=== PATIENT | female | born 1995 | race Caucasian/White ===

== ENCOUNTER 2017-07-28 21:45 | Emergency (ER) | payer OTHER ==
[~2017-07-28] VITALS: Ht 170.2 cm; Wt 49.9 kg
[~2017-07-28 21:45] MED LIST: ALBUTEROL2.5 MG/0.5 INH; AMOXICILLIN 50500 MG PO; CELEXA10 MG; CIPRO500 MG PO; DEPAKOTE 250MG250 M1 PO; FLAGYL500 MG PO; IBUPROFEN 800800 M1 PO; NEBULIZER MISCELL; PREDNISONE 20 M20 MG PO; PROAIR HFA8.5 GM INH; RISPERDAL 1 MG T1 MG PO; VENTOLIN HFA 1818 GM INH; VISTARIL 25 MG25 M1; XANAX1 MG PO
[2017-07-28] MEDS ORDERED: VENTOLIN HFA 1818 GM INH (21:48)
[2017-07-28] MEDS ORDERED: PREDNISONE 20 M20 M1 PO (21:48)
[2017-07-28 22:30] VITALS: BP 110/63
== END 2017-07-28 22:31 | disposition home or self-care (01) ==
LOC: M.ERS 21:45
DX: J45.901 Unspecified asthma with (acute) exacerbation (principal); F41.9 Anxiety disorder, unspecified; F32.9 Major depressive disorder, single episode, unspecified; F20.9 Schizophrenia, unspecified; F17.210 Nicotine dependence, cigarettes, uncomplicated; F10.99 Alcohol use, unspecified with unspecified alcohol-induced disorder; F12.10 Cannabis abuse, uncomplicated

== ENCOUNTER 2017-08-18 00:52 | Emergency (ER) | payer OTHER ==
[~2017-08-18] VITALS: Ht 170.2 cm; Wt 49.9 kg
[~2017-08-18 00:52] MED LIST changes: +PREDNISONE 20 M20 M1 PO
[2017-08-18 01:03] VITALS: BP 127/70
== END 2017-08-18 01:12 | disposition home or self-care (01) ==
LOC: M.ERS 00:52
DX: F32.9 Major depressive disorder, single episode, unspecified (principal); J45.909 Unspecified asthma, uncomplicated; F20.9 Schizophrenia, unspecified; F41.9 Anxiety disorder, unspecified; F84.5 Asperger's syndrome; F17.210 Nicotine dependence, cigarettes, uncomplicated

== ENCOUNTER 2018-01-12 04:44 | Emergency (ER) | payer OTHER ==
[~2018-01-12] VITALS: Ht 172.7 cm; Wt 52.2 kg
[2018-01-12] MEDS ORDERED: XANAX 0.5 MG0.5 MG PO (05:03)
[2018-01-12] MEDS ORDERED: BACTRIM DS TAB1 EACH PO (05:18)
[2018-01-12] MEDS ORDERED: IBUPROFEN 800800 MG PO (05:18)
[2018-01-12] MEDS ORDERED: ACETAMINOPHEN-1 EAC1 PO (05:18)
[2018-01-12 05:50] VITALS: BP 124/80
== END 2018-01-12 05:53 | disposition home or self-care (01) ==
LOC: M.ERS 04:44
DX: L03.031 Cellulitis of right toe (principal); J45.909 Unspecified asthma, uncomplicated; F20.9 Schizophrenia, unspecified; F41.9 Anxiety disorder, unspecified; F32.9 Major depressive disorder, single episode, unspecified; F84.5 Asperger's syndrome; F17.210 Nicotine dependence, cigarettes, uncomplicated

== ENCOUNTER 2018-02-05 19:56 | Emergency (ER) | payer OTHER ==
[~2018-02-05] VITALS: Ht 172.7 cm; Wt 54.4 kg
[~2018-02-05 19:56] MED LIST changes: +ACETAMINOPHEN-1 EAC1 PO; +BACTRIM DS TAB1 EACH PO; +IBUPROFEN 800800 MG PO; +XANAX 0.5 MG0.5 MG PO
[2018-02-05 20:33] LABS: URINE BILIRUBIN NEGATIVE (Negative); URINE BLOOD NEGATIVE (Negative); URINE CLARITY CLEAR; URINE COLOR YELLOW; URINE GLUCOSE-RANDOM NEGATIVE (Negative); URINE KETONES NEGATIVE (Negative); URINE LEUKOCYTES-REFLEX NEGATIVE (Negative); URINE NITRITE-REFLEX NEGATIVE (Negative); URINE PROTEIN NEGATIVE (Negative); URINE UROBILINOGEN 0.2 E.U./dl (0.2-1.0)
[2018-02-05 20:41] LABS: AMP/METHAMP POSITIVE (Negative); BARBITURATES Negative (Negative); BENZODIAZEPINES Negative (Negative); COCAINE Negative (Negative); METHADONE Negative (Negative); OPIATES Negative (Negative); PCP Negative (Negative); THC Negative (Negative)
[2018-02-05 20:54] LABS: ABSOLUTE EOSINOPHILS 0.7 thou/uL (0.0-0.7); ABSOLUTE LYMPHOCYTES 2.5 thou/uL (0.8-5.3); ABSOLUTE MONOCYTES 0.6 thou/uL (0.0-1.2); ABSOLUTE NEUTROPHILS 4.3 thou/uL (1.6-8.1); BASOPHILS 0.5 %; EOSINOPHILS 8.1 %; HEMATOCRIT 39.1 % (37.0-47.0); HEMOGLOBIN 13.3 gm/dL (12.0-15.0); LYMPHOCYTES 31.4 %; MCH 30.5 pg (26.0-34.0); MCV 89.7 fL (80.0-100.0); MONOCYTES 7.2 %; MPV 8.8 fl. (7.2-11.1); NUCLEATED RBCS 0 /100WBC; PLATELET COUNT* 213 thou/uL (150-400); POLYS 52.8 %; RBC 4.36 mil/uL (4.20-5.00); RDW-CV 12.8 % (10.5-14.5); WBC 8.1 thou/uL (4.0-11.0)
[2018-02-05 20:58] LABS: CALCIUM 8.7 mg/dL (8.5-10.1); CREATININE 0.5 mg/dL (0.6-1.3); POTASSIUM 3.4 mmol/L (3.5-5.1)
[2018-02-05 21:03] LABS: ALBUMIN 3.4 g/dL (3.4-5.0); TOTAL BILIRUBIN 0.3 mg/dL (<0.1-1.0); TOTAL PROTEIN 7.2 g/dL (6.4-8.2)
[2018-02-05 21:11] LABS: SALICYLATE < 2.8 mg/dL (2.8-20.0)
[2018-02-05 21:12] LABS: ACETAMINOPHEN < 2 ug/mL (10-30); ALCOHOL < 10 mg/dL (<10)
[2018-02-06 00:03] VITALS: BP 99/68
== END 2018-02-06 00:05 | disposition short-term general hospital (02) ==
LOC: M.ERS 19:56
PROVIDERS: Family Medicine
DX: F32.9 Major depressive disorder, single episode, unspecified (principal); J45.909 Unspecified asthma, uncomplicated; F20.9 Schizophrenia, unspecified; F41.9 Anxiety disorder, unspecified; F17.210 Nicotine dependence, cigarettes, uncomplicated

== ENCOUNTER 2019-03-09 15:53 | Emergency (ER) | payer OTHER ==
[~2019-03-09] VITALS: Ht 170.2 cm; Wt 54.4 kg
[2019-03-09] MEDS ORDERED: BIRTH CONTROL (16:12)
[2019-03-09 16:18] LABS: URINE BLOOD 3+ (Negative); URINE CLARITY CLOUDY; URINE COLOR YELLOW; URINE GLUCOSE-RANDOM NEGATIVE (Negative); URINE KETONES TRACE (Negative); URINE LEUKOCYTES-REFLEX 1+ (Negative); URINE NITRITE-REFLEX NEGATIVE (Negative); URINE PROTEIN 1+ (Negative); URINE SPECIFIC GRAVITY >= 1.030 (1.005-1.030); URINE UROBILINOGEN 0.2 E.U./dl (0.2-1.0)
[2019-03-09 16:27] LABS: ABSOLUTE BASOPHILS 0.1 thou/uL (0.0-0.2); ABSOLUTE EOSINOPHILS 0.5 thou/uL (0.0-0.7); ABSOLUTE LYMPHOCYTES 2.8 thou/uL (0.8-5.3); ABSOLUTE MONOCYTES 0.5 thou/uL (0.0-1.2); ABSOLUTE NEUTROPHILS 3.5 thou/uL (1.6-8.1); BASOPHILS 1.4 %; EOSINOPHILS 7.3 %; HEMATOCRIT 44.7 % (37.0-47.0); HEMOGLOBIN 15.2 gm/dL (12.0-15.0); LYMPHOCYTES 37.6 %; MCH 30.6 pg (26.0-34.0); MCHC 33.9 g/dL (28.0-37.0); MCV 90.3 fL (80.0-100.0); MONOCYTES 6.2 %; MPV 9.6 fl. (7.2-11.1); NUCLEATED RBCS 0 /100WBC; PLATELET COUNT* 261 thou/uL (150-400); POLYS 47.5 %; RBC 4.95 mil/uL (4.20-5.00); WBC 7.4 thou/uL (4.0-11.0)
[2019-03-09 16:27] LABS: CASTS None Seen /LPF (None Seen); CRYSTALS None Seen /LPF (None Seen); ICTOTEST (BILI CONFIRMATORY) Negative (Negative); MUCUS 0-3 Light strn/LPF (None Seen); SQUAMOUS >10 Many /LPF (0-3); URINE BILIRUBIN 1+ (Negative); URINE RBC 3-10 Few /HPF (0-2)
[2019-03-09 16:34] LABS: CALCIUM 9.4 mg/dL (8.5-10.1); CREATININE 0.9 mg/dL (0.6-1.3); POTASSIUM 3.5 mmol/L (3.5-5.1)
[2019-03-09 16:39] LABS: ALBUMIN 4.1 g/dL (3.4-5.0); TOTAL BILIRUBIN 0.5 mg/dL (<0.1-1.0); TOTAL PROTEIN 7.3 g/dL (6.4-8.2)
[2019-03-09] MEDS ORDERED: MACRODANTIN100 MG PO (16:39)
[2019-03-09] MEDS ORDERED: PROGESTERONE200 MG PO (16:44)
[2019-03-09 16:51] VITALS: BP 114/78
== END 2019-03-09 16:52 | disposition home or self-care (01) ==
LOC: M.ERS 15:53
PROVIDERS: Family Medicine
DX: N39.0 Urinary tract infection, site not specified (principal); F17.210 Nicotine dependence, cigarettes, uncomplicated; J45.909 Unspecified asthma, uncomplicated; F20.9 Schizophrenia, unspecified; F41.9 Anxiety disorder, unspecified; F32.9 Major depressive disorder, single episode, unspecified

== ENCOUNTER 2019-09-28 13:37 | Emergency (ER) | payer BC ==
[~2019-09-28] VITALS: Ht 170.2 cm; Wt 54.4 kg
[~2019-09-28 13:37] MED LIST changes: +BIRTH CONTROL; +MACRODANTIN100 MG PO; +PROGESTERONE200 MG PO
[2019-09-28] MEDS ORDERED: SYMBICORT160 MCG/4. INH (13:48)
[2019-09-28] MEDS ORDERED: PREDNISONE 20 M20 M1 PO (13:48)
[2019-09-28 14:06] LABS: INFLUENZA A ANTIGEN Negative (Negative); INFLUENZA B ANTIGEN Negative (Negative)
[2019-09-28 14:32] VITALS: BP 135/81
== END 2019-09-28 14:33 | disposition home or self-care (01) ==
LOC: M.ERS 13:37
PROVIDERS: Emergency Medicine Emergency Medical Services
DX: J45.901 Unspecified asthma with (acute) exacerbation (principal); F17.210 Nicotine dependence, cigarettes, uncomplicated

== ENCOUNTER 2019-10-07 21:37 | Emergency (ER) | payer BC ==
[~2019-10-07] VITALS: Ht 170.2 cm; Wt 52.2 kg
[~2019-10-07 21:37] MED LIST changes: +SYMBICORT160 MCG/4. INH
[2019-10-07] MEDS ORDERED: PULMICORT FLE180 MCG INH ×2 (22:47→23:00)
[2019-10-07] MEDS ORDERED: VENTOLIN HFA 1818 GM INH ×2 (22:47→23:00)
[2019-10-07] MEDS ORDERED: ZPAK PO ×2 (22:47→23:00)
[2019-10-07] MEDS ORDERED: PREDNISONE 10 M10 MG PO ×2 (22:47→23:00)
[2019-10-07 22:55] LABS: INFLUENZA A ANTIGEN Negative (Negative); INFLUENZA B ANTIGEN Negative (Negative)
[2019-10-07 23:14] VITALS: BP 115/70
== END 2019-10-07 23:15 | disposition home or self-care (01) ==
LOC: M.ERS 21:37
PROVIDERS: Nurse Practitioner Family
DX: J06.9 Acute upper respiratory infection, unspecified (principal); J45.909 Unspecified asthma, uncomplicated; F17.210 Nicotine dependence, cigarettes, uncomplicated

== ENCOUNTER 2019-10-23 10:33 | Emergency (ER) | payer BC ==
[~2019-10-23] VITALS: Ht 170.2 cm; Wt 54.4 kg
[~2019-10-23 10:33] MED LIST changes: +PREDNISONE 10 M10 MG PO; +PULMICORT FLE180 MCG INH; +ZPAK PO
[2019-10-23] MEDS ORDERED: VENTOLIN HFA 1818 GM INH (11:10)
[2019-10-23 11:17] VITALS: BP 108/72
== END 2019-10-23 11:20 | disposition home or self-care (01) ==
LOC: M.ERS 10:33
DX: F41.0 Panic disorder [episodic paroxysmal anxiety] (principal); F15.10 Other stimulant abuse, uncomplicated; R10.9 Unspecified abdominal pain; J45.909 Unspecified asthma, uncomplicated; F41.9 Anxiety disorder, unspecified; F32.9 Major depressive disorder, single episode, unspecified; F20.9 Schizophrenia, unspecified; F84.0 Autistic disorder; F17.210 Nicotine dependence, cigarettes, uncomplicated; Y04.0XXA Assault by unarmed brawl or fight, initial encounter; Y93.89 Activity, other specified; Y92.89 Other specified places as the place of occurrence of the external cause; Y99.8 Other external cause status

== ENCOUNTER 2020-04-11 23:10 | Emergency (ER) | payer BC ==
[~2020-04-11] VITALS: Ht 172.7 cm; Wt 54.4 kg
[2020-04-11] MEDS ORDERED: SYMBICORT160 MCG/4. INH (23:15)
[2020-04-11] MEDS ORDERED: PROAIR HFA8.5 GM INH (23:34)
[2020-04-11 23:39] VITALS: BP 132/68
[2020-04-12] MEDS ORDERED: PREDNISONE50 MG PO (06:38)
== END 2020-04-11 23:39 | disposition home or self-care (01) ==
LOC: M.ERS 23:10
DX: F41.9 Anxiety disorder, unspecified (principal); J45.901 Unspecified asthma with (acute) exacerbation; F20.9 Schizophrenia, unspecified; F17.210 Nicotine dependence, cigarettes, uncomplicated

== ENCOUNTER 2020-04-12 05:33 | Emergency (ER) | payer BC ==
[~2020-04-12] VITALS: Ht 172.7 cm; Wt 54.4 kg
[2020-04-12] MEDS ORDERED: PREDNISONE50 MG PO (06:38)
[2020-04-12 06:43] VITALS: BP 141/68
== END 2020-04-12 06:43 | disposition home or self-care (01) ==
LOC: M.ERS 05:33
DX: J45.901 Unspecified asthma with (acute) exacerbation (principal); F17.210 Nicotine dependence, cigarettes, uncomplicated

== ENCOUNTER 2020-04-13 06:27 | Emergency (ER) | payer BC ==
[~2020-04-13] VITALS: Ht 172.7 cm; Wt 54.4 kg
[~2020-04-13 06:27] MED LIST changes: +PREDNISONE50 MG PO
[2020-04-13 06:28] VITALS: BP 107/64
== END 2020-04-13 19:39 | disposition home or self-care (01) ==
LOC: M.ERS 06:27
DX: J45.901 Unspecified asthma with (acute) exacerbation (principal); F17.210 Nicotine dependence, cigarettes, uncomplicated; Z79.899 Other long term (current) drug therapy

== ENCOUNTER 2020-04-13 19:13 | Emergency (ER) | payer BC | END 2020-04-13 19:39 | disposition home or self-care (01) | LOC: M.ERS 19:13 | DX: R06.02 Shortness of breath (principal); Z53.21 Procedure and treatment not carried out due to patient leaving prior to being seen by health care provider ==

== ENCOUNTER 2020-10-31 22:32 | Emergency (ER) | payer BC ==
[~2020-10-31] VITALS: Ht 170.2 cm; Wt 52.2 kg
[2020-10-31] MEDS ORDERED: PREDNISONE50 MG PO (23:15)
[2020-10-31] MEDS ORDERED: PROAIR HFA8.5 GM INH (23:15)
[2020-11-01] MEDS ORDERED: CEPHALEXIN500 MG PO (01:10)
[2020-11-01 01:26] VITALS: BP 120/72
== END 2020-11-01 01:26 | disposition home or self-care (01) ==
LOC: M.ERS 22:32
DX: J45.901 Unspecified asthma with (acute) exacerbation (principal); F17.210 Nicotine dependence, cigarettes, uncomplicated

== ENCOUNTER 2021-01-15 08:48 | Emergency (ER) | payer BC ==
[~2021-01-15] VITALS: Ht 170.2 cm; Wt 54.4 kg
[~2021-01-15 08:48] MED LIST changes: +CEPHALEXIN500 MG PO
[2021-01-15] MEDS ORDERED: VENTOLIN HFA 1818 GM INH (09:17)
[2021-01-15] MEDS ORDERED: PREDNISONE 20 M20 M1 PO (09:17)
[2021-01-15 09:45] VITALS: BP 113/72
== END 2021-01-15 09:46 ==
LOC: M.ERS 08:48
DX: J45.901 Unspecified asthma with (acute) exacerbation (principal); F17.210 Nicotine dependence, cigarettes, uncomplicated

== ENCOUNTER 2021-01-21 16:35 | Emergency (ER) | payer BC ==
[~2021-01-21] VITALS: Ht 172.7 cm; Wt 54.4 kg
[2021-01-21] MEDS ORDERED: PREDNISONE 20 M20 M1 PO (16:42)
[2021-01-21 17:07] VITALS: BP 106/68
== END 2021-01-21 17:08 | disposition home or self-care (01) ==
LOC: M.ERS 16:35
DX: J45.901 Unspecified asthma with (acute) exacerbation (principal); F17.210 Nicotine dependence, cigarettes, uncomplicated

== ENCOUNTER 2021-02-14 13:02 | Emergency (ER) | payer BC ==
[~2021-02-14] VITALS: Ht 172.7 cm; Wt 58.5 kg
[2021-02-14 13:52] VITALS: BP 118/82
== END 2021-02-14 13:55 | disposition home or self-care (01) ==
LOC: M.ERS 13:02
DX: T40.1X1A Poisoning by heroin, accidental (unintentional), initial encounter (principal); R06.02 Shortness of breath; J45.909 Unspecified asthma, uncomplicated; F20.9 Schizophrenia, unspecified; F41.9 Anxiety disorder, unspecified; F32.9 Major depressive disorder, single episode, unspecified; F19.10 Other psychoactive substance abuse, uncomplicated; F17.210 Nicotine dependence, cigarettes, uncomplicated; Z79.51 Long term (current) use of inhaled steroids; Y92.89 Other specified places as the place of occurrence of the external cause

== ENCOUNTER → 2021-02-15 | Emergency (ER) | payer BC | LOC: M.ERS 23:26 | DX: M62.40 Contracture of muscle, unspecified site (principal); Z53.21 Procedure and treatment not carried out due to patient leaving prior to being seen by health care provider ==

== ENCOUNTER 2021-07-25 02:04 | Inpatient (IN) | payer BC, MEDICARE ==
[~2021-07-25] VITALS: Ht 172.7 cm; Wt 54.4 kg
[2021-07-25 02:22] VITALS: BP 136/91
[2021-07-25 02:54] LABS: URINE BILIRUBIN NEGATIVE (Negative); URINE BLOOD TRACE (Negative); URINE CLARITY CLEAR; URINE COLOR YELLOW; URINE GLUCOSE-RANDOM NEGATIVE (Negative); URINE KETONES NEGATIVE (Negative); URINE LEUKOCYTES-REFLEX NEGATIVE (Negative); URINE NITRITE-REFLEX NEGATIVE (Negative); URINE PROTEIN NEGATIVE (Negative); URINE SPECIFIC GRAVITY 1.015 (1.005-1.030); URINE UROBILINOGEN 0.2 E.U./dl (0.2-1.0)
[2021-07-25 02:59] LABS: AMP/METHAMP POSITIVE (Negative); BARBITURATES Negative (Negative); BENZODIAZEPINES Negative (Negative); COCAINE Negative (Negative); METHADONE Negative (Negative); OPIATES POSITIVE (Negative); PCP Negative (Negative); THC Negative (Negative)
[2021-07-25 03:29] LABS: HEMOGLOBIN 10.8 gm/dL (12.0-15.0); MCH 28.4 pg (26.0-34.0); MCHC 33.7 g/dL (28.0-37.0); MCV 84.2 fL (80.0-100.0); MPV 8.6 fl. (7.2-11.1); NUCLEATED RBCS 0 /100WBC; PLATELET COUNT* 240 thou/uL (150-400); RDW-CV 13.9 % (10.5-14.5)
[2021-07-25 03:57] LABS: CALCIUM 7.9 mg/dL (8.5-10.1); CREATININE 0.8 mg/dL (0.6-1.3)
[2021-07-25 04:01] LABS: INFLUENZA A ANTIGEN Negative (Negative); INFLUENZA B ANTIGEN Negative (Negative)
[2021-07-25 04:02] LABS: ALBUMIN 2.2 g/dL (3.4-5.0); TOTAL BILIRUBIN 0.6 mg/dL (<0.1-1.0); TOTAL PROTEIN 6.9 g/dL (6.4-8.2)
[2021-07-25 04:04] LABS: POTASSIUM 3.2 mmol/L (3.5-5.1)
[2021-07-25 06:31] LABS: ABSOLUTE LYMPHOCYTES 1.3 thou/uL (0.8-5.3); ABSOLUTE MONOCYTES 0.2 thou/uL (0.0-1.2); ABSOLUTE NEUTROPHILS 10.4 thou/uL (1.6-8.1)
[2021-07-25 06:32] LABS: PLATELET ESTIMATE ADEQUATE
[2021-07-25 08:25] VITALS: BP 90/55
[2021-07-25 09:25] VITALS: BP 89/53
[2021-07-25 11:37] VITALS: BP 86/52
[2021-07-25 15:55] VITALS: BP 106/74
[2021-07-25 20:00] VITALS: BP 109/79
[2021-07-26] VITALS (7 sets, daily range): BP systolic 95–115; BP diastolic 58–81
[2021-07-26 12:23] LABS: ABSOLUTE EOSINOPHILS 0.2 thou/uL (0.0-0.7); ABSOLUTE LYMPHOCYTES 2.8 thou/uL (0.8-5.3); ABSOLUTE MONOCYTES 0.8 thou/uL (0.0-1.2); ABSOLUTE NEUTROPHILS 14.1 thou/uL (1.6-8.1); BASOPHILS 0.1 %; EOSINOPHILS 1.2 %; HEMATOCRIT 34.8 % (37.0-47.0); HEMOGLOBIN 11.5 gm/dL (12.0-15.0); LYMPHOCYTES 15.4 %; MCH 28.5 pg (26.0-34.0); MCHC 33.1 g/dL (28.0-37.0); MCV 85.9 fL (80.0-100.0); MONOCYTES 4.2 %; MPV 8.7 fl. (7.2-11.1); NUCLEATED RBCS 0 /100WBC; PLATELET COUNT* 265 thou/uL (150-400); POLYS 79.1 %; RBC 4.05 mil/uL (4.20-5.00); RDW-CV 14.6 % (10.5-14.5); WBC 17.9 thou/uL (4.0-11.0)
[2021-07-26 12:32] LABS: APTT 31.3 Seconds (25.0-31.3); PROTIME 10.6 Seconds (9.20-11.50)
[2021-07-26 12:34] LABS: PHOSPHORUS* 3.5 mg/dL (2.5-4.9)
[2021-07-26 12:35] LABS: ALBUMIN 2.3 g/dL (3.4-5.0); CALCIUM 8.3 mg/dL (8.5-10.1); CREATININE 0.7 mg/dL (0.6-1.3); MAGNESIUM 2.3 mg/dL (1.8-2.4); POTASSIUM 3.5 mmol/L (3.5-5.1); TOTAL BILIRUBIN 0.5 mg/dL (<0.1-1.0); TOTAL PROTEIN 7.6 g/dL (6.4-8.2)
--- NOTE | 2021-07-26 18:57 | CON ---
[address] [address] CONSULTATION Name: ORTIZSAMANTHA Franklin Room: [address] IN ..#: [id number] Admission: 07/25/21 Attend Phys: Yeimi Albert MD Discharge: Date of : 89 Report #: [id number] THIS REPORT FOR: cc: FAM - No family physician/PCP FAM - No family physician/PCP Osman Serna MD ~ DATE OF CONSULTATION: 07/25/2021 REQUESTING PHYSICIAN: Dr. Garcia. INDICATION FOR CONSULTATION: Cavitary pulmonary infiltrates. The patient also is positive for COVID-19. HISTORY OF PRESENT ILLNESS: A 26-year-old female with past medical history as mentioned below. This does include a history of IV drug abuse. The patient was recently admitted to [facility] with cough, back pain, chest pain and fever. She was noted to have blood cultures positive for oxacillin-sensitive Staph aureus according to the Emergency Room records. I do not, however, have the records available for my own review. The patient subsequently signed AMA, but felt worse and therefore came back to this hospital. She also is positive for COVID-19. Currently, the patient is not requiring supplemental oxygen. She appears comfortable. She is on room air. There is mild elevation in LFTs. PAST MEDICAL HISTORY: Bronchial asthma, anxiety, Asperger's, autism, depression, anorexia. SOCIAL HISTORY: History of IV heroin use, also amphetamine use, unknown to me as to whether she used to inject or otherwise take amphetamines. Active smoker. Denies use of significant amounts of alcohol. ALLERGIES: No known drug allergies. FAMILY HISTORY: No pertinent family history. CURRENT MEDICATIONS: List in [facility] reviewed. PHYSICAL EXAMINATION: GENERAL: She is alert, awake and oriented. She is on room air. HEENT: There is no throat erythema. Head is normocephalic and atraumatic. NECK: Does not show raised JVP, asymmetry, mass or lymph nodes. CHEST: Symmetrical expansion on inspection and palpation. On auscultation, chest is clear. HEART: Regular. She is mildly tachycardic. ABDOMEN: Soft and nontender. EXTREMITIES: Lower extremities show no edema, [place] [address] CONSULTATION Name: SAMANTHA ORTIZ Room: [address]#: [id number] Admission: 07/25/21 Attend Phys: Yeimi Albert MD Discharge: Date of : [birth year] Report #: [id number] SKIN: Dry and intact. NEUROLOGIC: Moves all extremities bilaterally equally and spontaneously. No focal deficit identified. LABORATORY DATA: The patient's vitals are in the records reviewed. CTA chest, chest x-ray, ultrasound of abdomen as well as lab work in [facility] reviewed. ASSESSMENT AND PLAN: 1. Staphylococcus aureus bacteremia secondary to IV drug abuse with cavitary lung lesions. She currently is on vancomycin and Zosyn. ID has been consulted to review antibiotics tomorrow. Considering that she has COVID-19 and also she will be difficult to sedate for a bronchoscopy due to IV drug use, I would hold off on a bronchoscopy at this time and would favor treating her based on cultures with antibiotics first. It will be possible that the patient has endocarditis. I would go ahead and order a transthoracic echo. 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 2. COVID-19. She currently is not on supplemental oxygen. I considered we decided to hold off on giving her Decadron. Question is as to whether we should give her remdesivir. Recently, there is data that remdesivir improves outcomes in patients who are not on supplemental oxygen either. The patient also does have mild elevation in LFTs; therefore, I do not feel strongly either way regarding remdesivir at this point. Should she require oxygen, I would want to give her while watching LFTs. 3. History of IV heroin use. 4. History of amphetamine use. 5. Active smoker. 6. Hypokalemia. Potassium is being replaced. The magnesium level has also been ordered and is pending at this time. 7. Elevated LFTs. See discussion above. Ultrasound of abdomen is unremarkable. I did order a lipase level as well. Thanks for this consultation. <ELECTRONICALLY SIGNED> By: Osman Serna MD 07/26/21 1857 [id number] Serna MD /nt
[2021-07-27] VITALS: BP 101/65
[2021-07-27 04:00] VITALS: BP 110/60
[2021-07-27 04:38] LABS: ABSOLUTE EOSINOPHILS 0.2 thou/uL (0.0-0.7); ABSOLUTE LYMPHOCYTES 2.3 thou/uL (0.8-5.3); ABSOLUTE MONOCYTES 0.6 thou/uL (0.0-1.2); ABSOLUTE NEUTROPHILS 9.5 thou/uL (1.6-8.1); BASOPHILS 0.4 %; EOSINOPHILS 1.9 %; HEMATOCRIT 34.2 % (37.0-47.0); HEMOGLOBIN 11.3 gm/dL (12.0-15.0); LYMPHOCYTES 18.3 %; MCH 28.4 pg (26.0-34.0); MCHC 33.1 g/dL (28.0-37.0); MCV 85.7 fL (80.0-100.0); MONOCYTES 4.9 %; MPV 8.9 fl. (7.2-11.1); NUCLEATED RBCS 0 /100WBC; PLATELET COUNT* 259 thou/uL (150-400); POLYS 74.5 %; RBC 3.99 mil/uL (4.20-5.00); RDW-CV 14.1 % (10.5-14.5); WBC 12.8 thou/uL (4.0-11.0)
[2021-07-27 06:51] LABS: ALBUMIN 2.3 g/dL (3.4-5.0); CALCIUM 8.4 mg/dL (8.5-10.1); CREATININE 0.8 mg/dL (0.6-1.3); POTASSIUM 4.1 mmol/L (3.5-5.1); TOTAL BILIRUBIN 0.4 mg/dL (<0.1-1.0); TOTAL PROTEIN 7.6 g/dL (6.4-8.2)
[2021-07-27 07:58] VITALS: BP 90/56
[2021-07-27 11:49] VITALS: BP 96/60
[2021-07-27 16:00] VITALS: BP 90/53; BP 96/60
== END 2021-07-27 19:25 | disposition left against medical advice (07) | DRG 871 ==
LOC: M.ERS 02:04 → M.ORTHSURG 05:31 → M.TBA-ER 05:31 → M.ORTHSURG 10:47
PROVIDERS: Emergency Medicine; Internal Medicine; Internal Medicine Critical Care Medicine; ADMIT Internal Medicine; ATTEND Internal Medicine
DX: A41.2 Sepsis due to unspecified staphylococcus (principal); U07.1 COVID-19; I33.9 Acute and subacute endocarditis, unspecified; R65.21 Severe sepsis with septic shock; J18.8 Other pneumonia, unspecified organism; F84.5 Asperger's syndrome; Z68.1 Body mass index [BMI] 19.9 or less, adult; J45.909 Unspecified asthma, uncomplicated; F11.10 Opioid abuse, uncomplicated; F20.9 Schizophrenia, unspecified; L70.9 Acne, unspecified; F15.10 Other stimulant abuse, uncomplicated; E87.6 Hypokalemia; D64.9 Anemia, unspecified; R74.01 Elevation of levels of liver transaminase levels; R79.89 Other specified abnormal findings of blood chemistry; R63.0 Anorexia; F41.9 Anxiety disorder, unspecified; F17.210 Nicotine dependence, cigarettes, uncomplicated; F32.A Depression, unspecified; Z53.29 Procedure and treatment not carried out because of patient's decision for other reasons; Z79.899 Other long term (current) drug therapy; Z91.19 Patient's noncompliance with other medical treatment and regimen

== ENCOUNTER 2021-07-28 05:44 | Inpatient (IN) | payer BC, MEDICARE ==
[~2021-07-28] VITALS: Ht 172.7 cm; Wt 54.4 kg
[2021-07-28 05:45] VITALS: BP 103/74
[2021-07-28 06:28] LABS: URINE BILIRUBIN NEGATIVE (Negative); URINE BLOOD 2+ (Negative); URINE CLARITY CLEAR; URINE COLOR YELLOW; URINE GLUCOSE-RANDOM NEGATIVE (Negative); URINE KETONES NEGATIVE (Negative); URINE LEUKOCYTES-REFLEX TRACE (Negative); URINE NITRITE-REFLEX NEGATIVE (Negative); URINE PROTEIN NEGATIVE (Negative); URINE UROBILINOGEN 0.2 E.U./dl (0.2-1.0)
[2021-07-28 06:49] LABS: BACTERIA-REFLEX 1-9 Few /HPF (None Seen); HYALINE CASTS 0-3 Few /LPF (None Seen); MUCUS 0-3 Light strn/LPF (None Seen); SQUAMOUS 4-10 Moderate /LPF (0-3); URINE RBC 3-10 Few /HPF (0-2)
[2021-07-28 06:50] LABS: CRYSTALS None Seen /LPF (None Seen); URINE WBC-REFLEX 0-5 Rare /HPF (0-5)
[2021-07-28 06:58] LABS: ABSOLUTE BASOPHILS 0.1 thou/uL (0.0-0.2); ABSOLUTE EOSINOPHILS 0.2 thou/uL (0.0-0.7); ABSOLUTE LYMPHOCYTES 2.3 thou/uL (0.8-5.3); ABSOLUTE MONOCYTES 0.7 thou/uL (0.0-1.2); ABSOLUTE NEUTROPHILS 8.9 thou/uL (1.6-8.1); EOSINOPHILS 1.5 %; HEMATOCRIT 38.4 % (37.0-47.0); HEMOGLOBIN 12.7 gm/dL (12.0-15.0); MCH 28.6 pg (26.0-34.0); MCV 86.7 fL (80.0-100.0); NUCLEATED RBCS 0 /100WBC; PLATELET COUNT* 352 thou/uL (150-400); POLYS 72.5 %; RBC 4.43 mil/uL (4.20-5.00); RDW-CV 14.7 % (10.5-14.5); WBC 12.2 thou/uL (4.0-11.0)
[2021-07-28 07:01] LABS: CREATININE 0.7 mg/dL (0.6-1.3); POTASSIUM 5.1 mmol/L (3.5-5.1)
[2021-07-28 07:03] LABS: APTT 27.7 Seconds (25.0-31.3); PROTIME 10.4 Seconds (9.20-11.50)
[2021-07-28 07:06] LABS: ALBUMIN 2.8 g/dL (3.4-5.0); MAGNESIUM 2.5 mg/dL (1.8-2.4); TOTAL BILIRUBIN 0.5 mg/dL (<0.1-1.0); TOTAL PROTEIN 9.4 g/dL (6.4-8.2)
[2021-07-28 08:30] LABS: AMP/METHAMP Negative (Negative); BARBITURATES Negative (Negative); BENZODIAZEPINES Negative (Negative); COCAINE Negative (Negative); METHADONE Negative (Negative); OPIATES POSITIVE (Negative); PCP Negative (Negative); THC Negative (Negative)
[2021-07-28 08:38] LABS: BE 0.9 mmol/L (-2 to +3); PCO2 28.7 mmHg (35.0-45.0); PO2 116.9 mmHg (75.0-100.0); pH 7.519 (7.340-7.450)
--- NOTE | 2021-07-28 09:18 | EKG ---
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: : 1995 Requested By: Nancy Valenzuela Order Number: [id number] MD: Antonio Graves Measurements Intervals Clarence Rate: 127 P: 71 OK: 131 QRS: 81 QRSD: 70 T: 69 QT: 293 QTc: 426 Interpretive Statements Sinus tachycardia Consider right atrial enlargement No previous ECG available for comparison Electronically Signed On 07-28-2021 9:18:15 [employer]TRACTOR [employer]ER by Antonio Graves [email or web address] <ELECTRONICALLY SIGNED> By: Antonio Graves MD, [facility] 07/28/2118 0644 0644 Antonio Graves MD, [facility] /EPI
[2021-07-28 10:30] VITALS: BP 100/60
[2021-07-28 20:00] VITALS: BP 94/55
[2021-07-28 20:07] VITALS: BP 104/68
[2021-07-29] VITALS (17 sets, daily range): BP systolic 72–98; BP diastolic 35–73
[2021-07-29 04:32] LABS: ABSOLUTE BASOPHILS 0.1 thou/uL (0.0-0.2); ABSOLUTE EOSINOPHILS 0.2 thou/uL (0.0-0.7); ABSOLUTE LYMPHOCYTES 2.4 thou/uL (0.8-5.3); ABSOLUTE MONOCYTES 0.6 thou/uL (0.0-1.2); ABSOLUTE NEUTROPHILS 5.2 thou/uL (1.6-8.1); BASOPHILS 0.7 %; EOSINOPHILS 2.4 %; HEMATOCRIT 35.7 % (37.0-47.0); HEMOGLOBIN 11.8 gm/dL (12.0-15.0); MCH 28.3 pg (26.0-34.0); MCHC 33.1 g/dL (28.0-37.0); MCV 85.6 fL (80.0-100.0); MONOCYTES 7.6 %; MPV 8.5 fl. (7.2-11.1); NUCLEATED RBCS 0 /100WBC; POLYS 61.3 %; RBC 4.18 mil/uL (4.20-5.00); RDW-CV 14.3 % (10.5-14.5); WBC 8.5 thou/uL (4.0-11.0)
[2021-07-29 04:49] LABS: CALCIUM 8.5 mg/dL (8.5-10.1); CREATININE 0.7 mg/dL (0.6-1.3)
[2021-07-29 05:05] LABS: POTASSIUM 3.9 mmol/L (3.5-5.1)
[2021-07-29 06:01] LABS: PLATELET COUNT* 265 thou/uL (150-400)
--- NOTE | 2021-07-29 14:20 | TEE ---
[place] [address] TRANSESOPHAGEAL ECHOCARDIOGRAM Name: ANGELKEONEVELYN Franklin Room: [address] IN [facility]#: [id number] Admission: 07/28/21 Attend Phys: William Mosley Discharge: Date of : 89 Date of Service: 07/29/21 1419 Report #: [id number] THIS REPORT FOR: cc: FAM - No family physician/PCP FAM - No family physician/PCP Kyle Yang MD [facility] ~ APPROVED REPORT Study performed: 07/29/2021 10:10:20 EXAM: Comprehensive 2D, Doppler, and color-flow Echocardiogram Patient Location: In-Patient Room #: 117 Status: routine BSA: 1.64 HR: 100 bpm BP: 92/56 mmHg Rhythm: NSR Other Information Study Quality: Good Indications Endocarditis Echo Enhancing Agent Indication: Rule out Shunt Agent(s) / Amount(s) Used: Agitated Saline 10 cc Procedure After obtaining informed consent, patient underwent transesophageal echo in the Bedside. Type of Sedation : General Anesthesia Sedation was administered by Anesthesiologist. Sedation start time: 1015 Case end Time: 1025 Sedation was achieved intravenously with: Propofol (220) Transesophageal probe was inserted and advanced into esophagus without difficulty by Kyle Yang MD, FACC. Echo enhancement indication: R/O Septal defect. Echo enhancement agent administered: Agitated Saline The NICOLE was performed without complications. Throughout the procedure, the blood pressure, pulse oximetry, [place] [address] TRANSESOPHAGEAL ECHOCARDIOGRAM Name: SAMANTHA ORTIZ Room: [address] IN [facility].#: [id number] Admission: 07/28/21 Attend Phys: William Mosley Discharge: Date of : [birth year] Date of Service: 07/29/21 1419 Report #: [id number] rhythm, and rate were monitored. The patient tolerated the procedure without adverse effects. Recovery from conscious sedation was uneventful and vital signs were stable. Left Ventricle The left ventricle is normal size. There is normal LV segmental wall motion. There is normal left ventricular wall thickness. Left ventricular systolic function is normal. LVEF is 60-65%. Right Ventricle The right ventricle is normal size. The right ventricular systolic function is normal. Atria The left atrium size is normal. No thrombus is visualized in the left atrium or appendage. The interatrial septum is intact with no evidence for an atrial septal defect. The right atrium size is normal. Aortic Valve The aortic valve is normal in structure. No aortic regurgitation is present. There is no aortic valvular stenosis. Mitral Valve The mitral valve is normal in structure. Trace mitral regurgitation. No evidence of mitral valve stenosis. Tricuspid Valve The tricuspid valve is normal in structure. Mild tricuspid regurgitation. Tricuspid valve vegetation is present. Pulmonic Valve The pulmonary valve is normal in structure. There is no pulmonic valvular regurgitation. Great Vessels The aortic root is normal in size. Pericardium There is no pericardial effusion. <Conclusion> The left ventricle is normal size. There is normal left ventricular wall thickness. Left ventricular [place] [address] TRANSESOPHAGEAL ECHOCARDIOGRAM Name: SAMANTHA ORTIZ Room: [address]#: [id number] Admission: 07/28/21 Attend Phys: William Mosley Discharge: Date of : 89 Date of Service: 07/29/21 1419 Report #: [id number] LVEF is 60-65%. There is normal LV segmental wall motion. The interatrial septum is intact with no evidence for an atrial septal defect. No thrombus is visualized in the left atrium or appendage. Mild tricuspid regurgitation. Tricuspid valve vegetation is present. There is a pedunculated mobile mass attached to the posterior leaflet of the tricuspid valve measuring 0.9 cm in greatest diameter consistent with valvular vegetation. There is associated mild tricuspid valvular insufficiency. <ELECTRONICALLY SIGNED> By: Kyle Yang MD, [facility] 07/29/21 1419 1419 1419 Kyle Yang MD, FACC /INF
[2021-07-30 04:00] VITALS: BP 99/82
[2021-07-30 08:00] VITALS: BP 91/47
[2021-07-30 12:00] VITALS: BP 96/61
[2021-07-30 14:36] LABS: ABSOLUTE BASOPHILS 0.1 thou/uL (0.0-0.2); ABSOLUTE EOSINOPHILS 0.2 thou/uL (0.0-0.7); ABSOLUTE LYMPHOCYTES 2.4 thou/uL (0.8-5.3); ABSOLUTE MONOCYTES 0.7 thou/uL (0.0-1.2); ABSOLUTE NEUTROPHILS 7.4 thou/uL (1.6-8.1); BASOPHILS 0.8 %; EOSINOPHILS 2.2 %; HEMATOCRIT 33.3 % (37.0-47.0); LYMPHOCYTES 22.2 %; MCH 28.5 pg (26.0-34.0); MCHC 33.1 g/dL (28.0-37.0); MCV 85.9 fL (80.0-100.0); MONOCYTES 6.7 %; MPV 8.7 fl. (7.2-11.1); NUCLEATED RBCS 0 /100WBC; PLATELET COUNT* 287 thou/uL (150-400); POLYS 68.1 %; RBC 3.88 mil/uL (4.20-5.00); WBC 10.9 thou/uL (4.0-11.0)
[2021-07-30 14:47] LABS: ALBUMIN 2.4 g/dL (3.4-5.0); CALCIUM 8.3 mg/dL (8.5-10.1); CREATININE 0.7 mg/dL (0.6-1.3); POTASSIUM 3.8 mmol/L (3.5-5.1); TOTAL BILIRUBIN 0.5 mg/dL (<0.1-1.0); TOTAL PROTEIN 7.8 g/dL (6.4-8.2)
[2021-07-30 16:00] VITALS: BP 92/89
[2021-07-30 20:00] VITALS: BP 93/55
[2021-07-31 09:59] VITALS: BP 82/45
[2021-07-31 16:00] VITALS: BP 110/65
[2021-07-31 20:00] VITALS: BP 120/60
[2021-08-01] VITALS: BP 107/63
[2021-08-01 12:00] VITALS: BP 113/75
[2021-08-01 16:50] VITALS: BP 114/79
[2021-08-02 09:23] VITALS: BP 110/78
[2021-08-02 12:34] VITALS: BP 99/55
[2021-08-02 17:05] VITALS: BP 117/68
== END 2021-08-02 19:15 | disposition left against medical advice (07) | DRG 871 ==
LOC: M.ERS 05:44 → M.TBA-ER 06:34 → M.ORTHSURG 06:34 → M.2W 07-30 18:15
PROVIDERS: Internal Medicine; Personal Emergency Response Attendant; ADMIT Internal Medicine; ATTEND Internal Medicine
PROC: B24BZZ4 Ultrasonography of Heart with Aorta, Transesophageal (ICD-10-PCS; principal; 2021-07-29)
PROC: 05HF33Z Insertion of Infusion Device into Left Cephalic Vein, Percutaneous Approach (ICD-10-PCS; 2021-07-31)
DX: A41.01 Sepsis due to Methicillin susceptible Staphylococcus aureus (principal); J12.82 Pneumonia due to coronavirus disease 2019; U07.1 COVID-19; I33.9 Acute and subacute endocarditis, unspecified; I76 Septic arterial embolism; J45.909 Unspecified asthma, uncomplicated; F17.210 Nicotine dependence, cigarettes, uncomplicated; F19.10 Other psychoactive substance abuse, uncomplicated; Z53.29 Procedure and treatment not carried out because of patient's decision for other reasons; F41.9 Anxiety disorder, unspecified; F32.9 Major depressive disorder, single episode, unspecified; Z86.16 Personal history of COVID-19; Z91.19 Patient's noncompliance with other medical treatment and regimen